=== PATIENT | female | born 1985 ===

== ENCOUNTER 2021-08-29 20:46 | Inpatient (IN) | payer SELFPAY ==
[2021-08-29 22:59] LABS: Bacteria,Urine 1+ /HPF (Negative); Bilirubin,Urine NEG (Negative); Blood,Urine NEG (Negative); Color,Urine Yellow (Yellow); Protein,Urine <15 mg/dL mg/dL (Negative); Urobilinogen,Urine < 2.0 mg/dL (<2.0)
[2021-08-30] MEDS ORDERED: TERBUTALINE 1 MG/1 ML INJ SUB-Q PRN (00:23)
[2021-08-30] MEDS ORDERED: ONDANSETRON 4 MG/2 ML INJ IV PRN (00:23)
[2021-08-30] MEDS ORDERED: METHYLERGONOVINE MALEATE 0.2 MG/ML VIAL IM PRN (00:23)
[2021-08-30] MEDS ORDERED: OXYTOCIN 10 UNIT/1 ML INJ IM PRN (00:23)
[2021-08-30] MEDS ORDERED: BUTORPHANOL 2 MG/1 ML INJ IV PRN (00:23)
[2021-08-30] MEDS ORDERED: CARBOPROST TROMETHAMINE 250 MCG/1 ML INJ IM PRN (00:23)
[2021-08-30] MEDS ORDERED: MINERAL OIL 30 ML ORAL LIQD PO PRN (00:23)
[2021-08-30] MEDS ORDERED: ePHEDrine SULFATE 50 MG/1 ML INJ IV PRN ×2 (00:23→13:22)
[2021-08-30] MEDS ORDERED: LOPERAMIDE 2 MG CAP PO PRN (00:23)
[2021-08-30] MEDS ORDERED: LIDOCAINE (2%) 20 MG/1 ML VIAL 20 ML MDV INFILTRATI ONE ×2 (00:23→21:51)
[2021-08-30] MEDS ORDERED: miSOPROStol 200 MCG TAB PR PRN (00:23)
[2021-08-30] MEDS ORDERED: ACETAMINOPHEN 325 MG TAB PO PRN (00:23)
--- NOTE | 2021-08-30 00:35 | Ultrasound Report ---
ULTRASOUND BIOPHYSICAL PROFILE INDICATION: wellbeing. COMPARISON: None available. FINDINGS: breathing movement = 2 Gross body movement = 2 tone = 2 Qualitative amniotic fluid volume = 2 Total biophysical score = 8/8 Amniotic fluid index is 8.1 cm. Presentation is Cephalic. heart rate is 143 beats per minute. IMPRESSION: biophysical profile = 06/02 Amniotic fluid index is 8.1 cm, within normal limits Signer Name: Fabio Ordaz MD Signed: 08/30/2021 12:30 AM Workstation Name: [id number]
[2021-08-30 00:53] LABS: Hematocrit 33.9 % (30.3-42.9); Hemoglobin 11.6 gm/dl (10.1-14.3); Mean Corpuscular HGB Conc 34 % (30-34); Mean Corpuscular Volume 81 fl (79-97); Platelet Count 159 K/mm3 (140-440); Red Blood Count 4.19 M/mm3 (3.65-5.03); Red Cell Distribution Width 16.5 % (13.2-15.2)
[2021-08-30] MEDS ORDERED: OXYTOCIN DRIP 30 UNITS/500 ML BAG IV SCH ×2 (01:00)
[2021-08-30] MEDS: fentaNYL 100 MCG/2 ML INJ IV PRN ×4 (03:03→12:10)
--- NOTE | 2021-08-30 07:14 | History and Physical Report ---
History of Present Illness Date of examination: 08/30/21 Date of admission: 08/30/21 00:23 Chief complaint: c/o uc times several hours History of present illness: 35 y/o presented to [facility] @ 39.4 wks with c/o uc x several hours. She denied VB or LOF and admitted to active FM. Pt initiated her care @ [facility] @ 11 2/7 wks. She has a med hx of lower uterine seg fibroids, anemia, arrhythmia with normal us, and elevated cholic acid with generalized itching. She has an unremarkable surg and family hx. Pt's GBS is neg. Pt was found to be in labor and was admitted to L&D for delivery. Past History Past Medical History: other (fibroids, anemia) Past Surgical History: no surgical history Family/Genetic History: none Social history: no significant social history, full code - Obstetrical History Expected Date of Delivery: 09/02/21 Actual Gestation: 39 Week(s) 4 Day(s) : 1 Para: 0 Medications and Allergies Allergies Allergy/AdvReac Type Severity Reaction Status Date / Time No Known Allergies Allergy Verified 08/30/21 00:28 Home Medications Medication Instructions Recorded Confirmed Last Taken Type Iron 1 tab PO DAILY 08/30/21 08/30/21 08/29/21 History Active Meds: Active Medications Acetaminophen (Acetaminophen 325 Mg Tab) 650 mg PO Q4H PRN PRN Reason: Pain, Mild (1-3) Butorphanol Tartrate (Butorphanol 2 Mg/1 Ml Inj) 1 mg IV Q2H PRN PRN Reason: Pain, Moderate(4-6) LABOR PAIN Carboprost Tromethamine (Carboprost Tromethamine 250 Mcg/1 Ml Inj) 250 mcg IM ONCE PRN PRN Reason: Uterine Bleeding Ephedrine Sulfate (Ephedrine Sulfate 50 Mg/1 Ml Inj) 10 mg IV Q2M PRN PRN Reason: Hypotension Fentanyl (Fentanyl 100 Mcg/2 Ml Inj) 100 mcg IV Q2H PRN PRN Reason: Pain,Severe (7-10) LABOR PAIN Last Admin: 08/30/21 03:03 Dose: 100 mcg Documented by: Oxytocin/Sodium Chloride (Pitocin/Ns 30 Unit/500ml) 30 units in 500 mls @ 2 mls/hr IV TITR QUE; Protocol Last Titration: 08/30/21 07:08 Dose: 4 ml/hr, 4 mls/hr Documented by: Lactated Ringer's (Lactated Ringers) 1,000 mls @ 125 mls/hr IV DIRECT QUE Oxytocin/Sodium Chloride (Pitocin/Ns 30 Unit/500ml) 30 units in 500 mls @ 40 mls/hr IV TITR QUE; Protocol Loperamide HCl (Loperamide 2 Mg Cap) 2 mg PO ONCE PRN PRN Reason: give with Hemabate Methylergonovine Maleate (Methylergonovine Maleate 0.2 Mg/Ml Vial) 0.2 mg IM ONCE PRN PRN Reason: Uterine Bleeding Mineral Oil (Mineral Oil 30 Ml Oral Liqd) 30 ml PO QHS PRN PRN Reason: Constipation Misoprostol (Misoprostol 200 Mcg Tab) 800 mcg DC ONCE PRN PRN Reason: Uterine Bleeding Ondansetron HCl (Ondansetron 4 Mg/2 Ml Inj) 4 mg IV Q8H PRN PRN Reason: Nausea And Vomiting Oxytocin (Oxytocin 10 Unit/1 Ml Inj) 10 unit IM ONCE PRN PRN Reason: Uterine Bleeding Terbutaline Sulfate (Terbutaline 1 Mg/1 Ml Inj) 0.25 mg SUB-Q ONCE PRN PRN Reason: Hyperstimulation/Hypertonicity Review of Systems All systems: negative Eyes: deferred Ears, nose, mouth and throat: deferred Breasts: normal - Vital Signs Vital signs: Vital Signs Pulse BP 79 120/80 08/29/21 21:22 08/29/21 21:22 Temp Pulse Resp BP Pulse Ox 98.4 F 80 16 122/71 97 08/30/21 07:02 08/30/21 07:07 08/30/21 07:02 08/30/21 07:02 08/30/21 07:07 - Physical Exam Breasts: Positive: normal Abdomen: Positive: normal appearance, soft, normal bowel sounds, other (gravid) Genitourinary (Female): Positive: normal external genitalia, normal perenium Vulva: both: normal Vagina: Positive: normal moisture Uterus: Positive: enlarged, normal contour, other (gravid) Adnexa: both: normal Anus/Rectum: Positive: normal perianal skin Extremities: Positive: normal - Obstetrical FHR: auscultation normal, category 1 Uterine Contraction Monitor Mode: External Cervical Dilatation: 4 (per nurse) Cervical Effacement Percentage: 80 (per nurse) station: -1 Uterine Contraction Pattern: Regular Uterine Tone Measurement Phase: Resting Uterine Contraction Intensity: Mild Results Result Diagrams: 08/30/21 00:35 Abnormal lab results 08/30/21 Range/Units 00:35 RDW 16.5 H (13.2-15.2) % All other labs normal. Assessment and Plan A: IUP@ 39.4 wks Fibroid lower uterine seg Hx of anemia Hx of arrhythmia Neg GBS P: Admit to L&D Continuous monitoring AROM (cl fluid) Anticipate - Patient Problems (1) Supervision of normal IUP (intrauterine ) in primigravida Current Visit: Yes Status: Acute (2) Fibroid, uterine Current Visit: Yes Status: Acute
[2021-08-30] MEDS: LACTATED RINGERS 1,000 ML IV SCH ×3 (10:15→18:34)
[2021-08-30] MEDS ORDERED: NALOXONE 2 MG/2 ML INJ IV PRN (13:22)
--- NOTE | 2021-08-30 13:22 | Anesthesia Consultation ---
Anesthesia Consult and Med Hx Date of service: 08/30/21 - Airway Anesthetic Teeth Evaluation: Good ROM Head & Neck: Adequate Mental/Hyoid Distance: Adequate Mallampati Class: Class II Intubation Access Assessment: Probably Good - Pulmonary Exam CTA: Yes - Cardiac Exam Cardiac Exam: RRR - Pre-Operative Health Status ASA Pre-Surgery Classification: ASA2 Proposed Anesthetic Plan: Epidural - Pulmonary Hx Asthma: No - Cardiovascular System Hx Hypertension: No - Central Nervous System Hx Seizures: No Hx Psychiatric Problems: No - Endocrine Hx Renal Disease: No Hx Hypothyroidism: No Hx Hyperthyroidism: No - Hematic Hx Anemia: Yes Hx Sickle Cell Disease: No - Other Systems Hx Alcohol Use: No
--- NOTE | 2021-08-30 13:47 | Progress Note ---
Labor Epidural - Labor Epidural Start Time: 13:35 Stop Time: 13:39 Performed by:: JESSI KOWALSKI Procedure: Patient is requesting epidural for labor pain. H&P, and labs reviewed. Procedure explained, questions answered, consent obtained. Patient in sitting position with blood pressure cuff and pulse ox on and working. Timeout performed immediately before start of procedure. Sterile chlorahexadine 0.5% prep/drape. 3 mL 1% lidocaine skin wheal at L[3]-L[4]. 17-gauge tuohy epidural needle advanced to [id number]-[id number]-lnyhyayhnh with saline at [7] cm. Epidural catheter advanced to [12] cm, negative aspiration for blood and csf, negative test dose 3 ml 1.5% lidocaine with epinephrine. Epidural dexmedetomidine [30] mcg administered. Sterile sponge and tegaderm applied, followed by tape reinforcement. Patient tolerated procedure well. Shavonne FREED
[2021-08-30] MEDS ORDERED: fentaNYL-BUPIV 2 MCG/ML-0.125% 200 MCG/100 ML BAG EPIDURAL SCH (14:00)
--- NOTE | 2021-08-30 18:52 | Event Note ---
Date: 08/30/21 Assumed care of patient at 5:15 PM. Patient has epidural. Cervix 10/100/+1 station at 18:00 cervical exam. Patient pushed for 25 minutes with little change in station. Contractions frequent so Pitocin discontinued. 4 late occurring FHR decelerations noted; patient was positioned in lateral position and oxygen was applied per face mask. Pitocin remains off and pushing was stopped. FSE applied. Contractions have have now spaced to every 3-5 minutes. Now FHR baseline 150 with minimal to moderate variability and accelerations. Patient remains afebrile but mild maternal tachycardia noted. Ampicillin and Gentamicin ordered and nurse notified.
[2021-08-30] MEDS: AMPICILLIN/NS 2 GM/100 ML 2 GM/100 ML BAG IV SCH (18:56)
[2021-08-30] MEDS: GENTAMICIN/NS 100 MG/100 ML 100 MG/100 ML BAG IV SCH (19:56)
[2021-08-30 21:44] LABS: Alanine Aminotransferase 12 units/L (7-56); Albumin 2.9 g/dL (3.9-5); BUN/Creatinine Ratio 15; Blood Urea Nitrogen 12 mg/dL (7-17); Calcium 9.1 mg/dL (8.4-10.2); Hemolysis Index 1
[2021-08-30] MEDS ORDERED: HYDROcodone/ACETAMINOPHEN 5-325 MG TAB PO PRN (23:37)
[2021-08-30] MEDS ORDERED: MAGNESIUM HYDROXIDE (MOM) ORAL LIQD UDC PO PRN (23:37)
[2021-08-30] MEDS ORDERED: WITCH HAZEL/ GLYCERIN PAD TP PRN (23:37)
[2021-08-30] MEDS ORDERED: diphenhydrAMINE 25 MG CAP PO PRN (23:37)
[2021-08-30] MEDS ORDERED: LANOLIN/ZINC/DIMETHICONE (LANSINOH) 7 GM TP PRN (23:37)
--- NOTE | 2021-08-30 23:45 | Procedure Note ---
OB Delivery Note - Delivery Date of Delivery: 08/30/21 Surgeon: TORITO PERERA Estimated blood loss: 500cc - Vaginal Delivery presentation: vertex Delivery position: OA Intrapartum events: prolonged 2nd stage>2.5hr, shoulder dystocia Delivery augmentation: pitocin Delivery monitor: external FHT, external uterine, internal FHT Route of delivery: Delivery placenta: manual Delivery cord: 3 umbilical vessels Episiotomy: none Delivery laceration: 3rd degree Anesthesia: local, epidural Delivery comments: Spontaneous vaginal delivery at 22:05 of liveborn female weighing 7 lb. 5 oz. over 3rd degree perineal laceration with apgars of 8/9. Epidural anesthesia. Prolonged second stage of labor. Turtle sign noted at delivery; right anterior shoulder dystocia noted. Shoulder dystocia resolved with McRobert's maneuver and delivery of posterior arm. Head to body delivery inerval less than 1 minute. Baby placed on mom's chest immediately after delivery and dried and suctioned with bulb syringe. 3 vessel cord double clamped and cut and baby taken to radiant warmer for further suctioning and evaluation. Manual removal of intact placenta and membranes at 22:08 due to uterine bleeding. EBL 500 cc. Pitocin to IV fluids and Cytotec 800 mcg given rectally. Fundus firmed with massage and was 1 FB below umbilicus. Perineal and labial edema noted prior to delivery (prolonged labor); patient sustained 3rd degree perineal laceration. Dr. Hoff called to repair 3rd degree laceration. Repair of bilateral vaginal sidewall lacerations by CNOsman; repair of 3rd degree perineal laceration performed by Dr. Hoff. Vaginal sweep negative. Sponge count correct. Mother and baby stable. Baby moving all extremities well.
[2021-08-31] MEDS ORDERED: fentaNYL 100 MCG/2 ML INJ ONE (00:06)
[2021-08-31] MEDS: fentaNYL 100 MCG/2 ML INJ IV PRN (00:08)
[2021-08-31 01:00] LABS: Hematocrit 30.4 % (30.3-42.9); Mean Corpuscular HGB Conc 33 % (30-34); Mean Corpuscular Volume 83 fl (79-97); Platelet Count 155 K/mm3 (140-440); Red Blood Count 3.65 M/mm3 (3.65-5.03); Red Cell Distribution Width 16.8 % (13.2-15.2)
--- NOTE | 2021-08-31 01:16 | Event Note ---
Date: 08/31/21 Called in for repair of third-degree laceration after vaginal delivery, c/b shoulder dystocia. Patient found to have a third degree laceration that was repaired by me. Vaginal sidewall lacerations were repaired by NEREIDA Mcfarlane.
[2021-08-31] MEDS: AMPICILLIN/NS 2 GM/100 ML 2 GM/100 ML BAG IV SCH ×4 (02:54→21:34)
[2021-08-31] MEDS ORDERED: BENZOCAINE/MENTHOL 20/0.5% TOP SPRAY 56 GM TP PRN (02:59)
[2021-08-31 03:13] LABS: RBC Morphology Normal; Total Cells Counted 100
[2021-08-31] MEDS: GENTAMICIN/NS 100 MG/100 ML 100 MG/100 ML BAG IV SCH ×3 (04:50→20:45)
[2021-08-31] MEDS: IBUPROFEN 600 MG TAB PO SCH ×3 (04:50→18:23)
--- NOTE | 2021-08-31 08:41 | XRay Report ---
CHEST 2 VIEWS INDICATION / CLINICAL INFORMATION: Coronavirus positive; cough. COMPARISON: None available. FINDINGS: SUPPORT DEVICES: None. HEART / MEDIASTINUM: No significant abnormality. LUNGS / PLEURA: No significant pulmonary or pleural abnormality. No pneumothorax. ADDITIONAL FINDINGS: No significant additional findings. IMPRESSION: 1. No acute findings. Signer Name: Vance Vasquez DO Signed: 08/31/2021 8:36 AM Workstation Name: [id number]
[2021-08-31] MEDS: DOCUSATE SODIUM 100 MG CAP PO SCH ×2 (09:29→21:34)
[2021-08-31] MEDS: FERROUS SULFATE 325 MG TAB PO SCH (09:30)
--- NOTE | 2021-08-31 13:06 | Progress Note ---
Assessment and Plan continue routine pp care DC to home in AM Domenica Morillo MD Subjective - Subjective Date of service: 08/31/21 Patient reports: voiding normally, pain well controlled, ambulating normally [place]: doing well Objective - Vital Signs Latest vital signs: Vital Signs Temp Pulse Resp BP Pulse Ox Pulse Ox 08/31/21 08:56 98.2 F 99 H 18 129/70 96 08/31/21 08:29 100 08/31/21 05:50 18 08/31/21 04:50 18 08/31/21 02:54 99.3 F 107 H 20 132/82 98 100 08/31/21 02:05 106 H 128/65 08/31/21 00:31 99 H 135/69 08/31/21 00:16 100 H 135/62 08/31/21 00:01 111 H 123/56 08/30/21 23:47 111 H 111/56 08/30/21 23:31 118 H 94/50 08/30/21 23:21 105 H 101/52 08/30/21 23:01 111 H 133/63 08/30/21 22:51 109 H 129/65 08/30/21 22:35 98.3 F 08/30/21 21:13 129 H 99 08/30/21 21:08 98.9 F 123 H 99 08/30/21 21:03 117 H 100 08/30/21 20:58 131 H 100 08/30/21 20:53 147 H 98 08/30/21 20:48 120 H 100 08/30/21 20:47 127 H 120/58 08/30/21 20:43 123 H 99 08/30/21 20:38 113 H 99 08/30/21 20:33 123 H 99 08/30/21 20:32 121 H 109/53 08/30/21 20:28 119 H 100 08/30/21 20:23 116 H 99 08/30/21 20:18 129 H 121/57 100 08/30/21 20:13 125 H 98 08/30/21 20:08 110 H 99 08/30/21 20:03 107 H 99 08/30/21 20:01 114 H 102/55 08/30/21 19:58 110 H 99 08/30/21 19:53 98.8 F 118 H 99 08/30/21 19:49 99 08/30/21 19:48 127 H 99 08/30/21 19:43 124 H 99 08/30/21 19:38 124 H 99 08/30/21 19:37 124 H 88 08/30/21 19:33 124 H 99 08/30/21 19:32 127 H 110/55 08/30/21 19:28 125 H 99 08/30/21 19:23 125 H 99 08/30/21 19:18 117 H 98 08/30/21 19:17 114 H 107/53 08/30/21 19:13 120 H 99 08/30/21 19:08 104 H 99 08/30/21 19:03 110 H 99 08/30/21 19:02 114 H 107/57 08/30/21 18:58 118 H 100 08/30/21 18:53 115 H 100 08/30/21 18:48 122 H 99 08/30/21 18:46 117 H 94/53 08/30/21 18:43 114 H 99 08/30/21 18:41 120 H 103/55 08/30/21 18:38 118 H 99 08/30/21 18:33 107 H 92/50 99 08/30/21 18:28 104 H 100 08/30/21 18:23 115 H 100 08/30/21 18:18 136 H 98 08/30/21 18:13 117 H 98 08/30/21 18:09 85 88 08/30/21 18:08 109 H 99 08/30/21 18:03 120 H 98 08/30/21 18:02 50 L 89 08/30/21 17:58 104 H 100 08/30/21 17:53 109 H 98 08/30/21 17:48 112 H 98 08/30/21 17:46 113 H 103/51 08/30/21 17:43 105 H 100 08/30/21 17:38 102 H 99 08/30/21 17:33 101 H 100 08/30/21 17:32 99 H 119/68 08/30/21 17:28 106 H 99 08/30/21 17:23 102 H 99 08/30/21 17:18 99 H 111/64 99 08/30/21 17:13 101 H 99 08/30/21 17:08 132 H 99 08/30/21 17:03 118 H 99 08/30/21 17:02 107 H 110/69 08/30/21 16:58 107 H 99 08/30/21 16:53 108 H 99 08/30/21 16:48 96 H 99 08/30/21 16:47 96 H 113/70 08/30/21 16:43 85 98 08/30/21 16:38 86 98 08/30/21 16:33 91 H 110/66 98 08/30/21 16:28 83 98 08/30/21 16:23 96 H 98 08/30/21 16:18 102 H 99 08/30/21 16:17 94 H 115/66 08/30/21 16:13 106 H 99 08/30/21 16:08 102 H 99 08/30/21 16:03 108 H 98 08/30/21 16:01 106 H 104/61 08/30/21 15:58 102 H 99 08/30/21 15:53 118 H 99 08/30/21 15:48 99 H 98 08/30/21 15:47 97 H 108/64 08/30/21 15:43 88 98 08/30/21 15:38 90 99 08/30/21 15:33 113 H 99 08/30/21 15:31 110 H 109/61 08/30/21 15:28 87 98 08/30/21 15:23 82 98 08/30/21 15:18 95 H 98 08/30/21 15:17 92 H 103/57 08/30/21 15:13 102 H 98 08/30/21 15:08 89 99 08/30/21 15:03 99 H 99 08/30/21 15:02 100 H 104/60 08/30/21 14:58 99 H 98 08/30/21 14:53 94 H 99 08/30/21 14:48 105 H 99 08/30/21 14:47 101 H 97/55 08/30/21 14:43 89 99 08/30/21 14:38 105 H 99 08/30/21 14:33 97 H 100 08/30/21 14:32 98.6 F 102 H 111/65 08/30/21 14:28 103 H 99 08/30/21 14:23 103 H 99 08/30/21 14:18 107 H 100 08/30/21 14:16 103 H 101/61 08/30/21 14:13 109 H 99 08/30/21 14:08 109 H 100 08/30/21 14:03 101 H 100 08/30/21 13:58 113 H 101/57 100 08/30/21 13:54 102 H 109/57 08/30/21 13:53 103 H 100 08/30/21 13:49 104 H 113/61 08/30/21 13:48 112 H 100 08/30/21 13:43 125 H 99 08/30/21 13:41 108 H 113/66 08/30/21 13:39 106 H 116/66 08/30/21 13:38 102 H 99 08/30/21 13:36 98 H 113/64 08/30/21 13:33 96 H 99 08/30/21 13:28 96 H 98 08/30/21 13:23 106 H 98 08/30/21 13:18 113 H 99 08/30/21 13:13 98 H 99 08/30/21 13:08 92 H 96 Intake and Output 08/30/21 08/31/21 08/31/21 23:59 07:59 15:59 Intake Total 669.883 640 Output Total 450 Balance 219.883 640 Intake: IV 669.883 400 AMPICILLIN/NS 2 GM/100 ML 200 2 gm In 100 ml @ 100 mls /hr IV Q6H QUE Rx#: [id number] GENTAMICIN/NS 100 MG/100 200 ML 100 mg In 100 ml @ 195 .122 mls/hr IV Q8H QUE Rx #:[id number] Lactated Ringers 1,000 ml 622.917 @ 125 mls/hr IV DIRECT QUE Rx#:[id number] PITOCin/NS 30 UNIT/500ML 46.966 30 units In 500 ml @ 2 mls/hr IV TITR QUE Rx#: [id number] Intake, Free Water 240 Output: Urine 450 Indwelling Catheter 450 Other: Total, Output Amount 450 Estimated Blood Loss 500 - Exam Breasts: Present: deferred Cardiovascular: Present: Regular rate Lungs: Present: Clear to auscultation Abdomen: Present: normal appearance, soft, normal bowel sounds Vulva: both: laceration/episiotomy (3rd degree laceration) Uterus: Present: fundal height below umbilicus Extremities: Present: normal Deep Tendon Reflex Grade: Normal +2 - Labs Labs: Abnormal lab results 08/30/21 08/30/21 08/31/21 Range/Units 09:05 21:04 00:44 WBC 19.1 H (4.5-11.0) K/mm3 Hgb 10.0 L (10.1-14.3) gm/dl RDW 16.8 H (13.2-15.2) % Seg Neuts % (Manual) 90.0 H (40.0-70.0) % Lymphocytes % (Manual) 4.0 L (13.4-35.0) % Seg Neutrophils # Man 17.2 H (1.8-7.7) K/mm3 Lymphocytes # (Manual) 0.8 L (1.2-5.4) K/mm3 Monocytes # (Manual) 1.1 H (0.0-0.8) K/mm3 Sodium 136 L (137-145) mmol/L Carbon Dioxide 13 L (22-30) mmol/L Alkaline Phosphatase 234 H (35-129) units/L Albumin 2.9 L (3.9-5) g/dL Coronavirus (PCR) Positive A (Negative)
--- NOTE | 2021-08-31 13:08 | Discharge Summary ---
Providers - Providers Date of Admission: 08/30/21 00:23 Date of discharge: 08/31/21 Attending physician: HILLARY SCANLON Primary care physician: HILLARY SCANLON Hospitalization Delivery: Laceration: 3rd degree Discharge diagnosis: IUP at term delivered Condition at discharge: Stable Disposition: 01 HOME / SELF CARE / HOMELESS Plan - Provider Discharge Summary Activity: no sex for 6 weeks Additional instructions: [] Smoking cessation referral if applicable(refer to patient education folder for contact #) [] Refer to [facility]'s [facility] Booklet Call your doctor immediately for: * Fever > 100.5 * Heavy vaginal bleeding ( >1 pad per hour) * Severe persistent headache * Shortness of breath * Reddened, hot, painful area to leg or breast * Drainage or odor from incision. * Keep incision clean and dry at all times and follow doctor's instructions regarding bathing/showering - Follow up plan Follow up: HILLARY SCANLON MD [Primary Care Provider] - 6 Weeks
--- NOTE | 2021-08-31 16:57 | Post Anesthesia Evaluation ---
- Post Anesthesia Evaluation Patient Participated: Yes Airway Patent: Yes Stable Respiratory Function: Yes Nausea/Vomiting: No Temp > 96.8F: Yes Pain Manageable: Yes Adequeate Hydration: Yes Anesthesia Complications: No Block Receding Appropriately: Yes
[2021-08-31 18:37] LABS: Hematocrit 26.6 % (30.3-42.9); Hemoglobin 8.8 gm/dl (10.1-14.3)
[2021-09-01] MEDS: IBUPROFEN 600 MG TAB PO SCH ×3 (01:08→12:25)
[2021-09-01] MEDS: AMPICILLIN/NS 2 GM/100 ML 2 GM/100 ML BAG IV SCH ×2 (03:15→09:19)
[2021-09-01] MEDS: LACTATED RINGERS 1,000 ML IV SCH (03:16)
[2021-09-01] MEDS: GENTAMICIN/NS 100 MG/100 ML 100 MG/100 ML BAG IV SCH (04:43)
[2021-09-01] MEDS: FERROUS SULFATE 325 MG TAB PO SCH (09:19)
[2021-09-01] MEDS: DOCUSATE SODIUM 100 MG CAP PO SCH (09:19)
[2021-09-01] MEDS ORDERED: HYDROCORTISONE 2.5% RECT CREAM 28.35 GM PR PRN (10:11)
[2021-09-01 14:45] VITALS: BP 113/63
== END 2021-09-01 14:25 | disposition home or self-care (01) | DRG 768 ==
LOC: TRG 20:46 → APU 20:47 → LD 08-30 00:23 → TRG 08-30 00:23 → OB 08-31 03:38
PROVIDERS: ADMIT Obstetrics & Gynecology; ATTEND Obstetrics & Gynecology
PROC: 10E0XZZ Delivery of Products of Conception, External Approach (ICD-10-PCS; principal; 2021-08-30)
PROC: 0DQR0ZZ Repair Anal Sphincter, Open Approach (ICD-10-PCS; 2021-08-30)
PROC: 3E0R3BZ Introduction of Anesthetic Agent into Spinal Canal, Percutaneous Approach (ICD-10-PCS; 2021-08-30)
PROC: 00HU33Z Insertion of Infusion Device into Spinal Canal, Percutaneous Approach (ICD-10-PCS; 2021-08-30)
DX: O66.0 Obstructed labor due to shoulder dystocia (principal); Z37.0 Single live birth; O70.20 Third degree perineal laceration during delivery, unspecified; D25.9 Leiomyoma of uterus, unspecified; O34.13 Maternal care for benign tumor of corpus uteri, third trimester; Z3A.39 39 weeks gestation of pregnancy; O63.1 Prolonged second stage (of labor)
CPT/HCPCS: 36415; 59025; 71046; 76815; 76819; 80053; 81001; 85007; 85014; 85018; 85025; 85027; 86592; 86803; 86850; 86900; 86901; 96360; 96365; 96366; G0378; J0290; J1580; J2590; J3010; J7120; U0003